=== PATIENT | male | born 1970 | race Caucasian/White ===

== ENCOUNTER → 2016-05-12 | Day surgery (SDC) | payer OTHER ==
[~2016-05-12] MED LIST: LACTATED RINGER'S 1000 ML INJ 1,000 ML ONE; LIDOCAINE 1%/EPINEPHrine 1:100,000 SOLN 50 ML VIAL ONE; MIDAZOLAM HCL 2 MG/2 ML VIAL ONE; ONDANSETRON HCL 4 MG/2 ML VIAL IV PUSH ONE; PROPOFOL 500 MG/50 ML BTL IV ONE; ceFAZolin 2 GM PREMIX 50 ML ONE
--- NOTE | 2016-05-12 13:40 | TN ---
cc: RAND MARINELLI M.D. DATE OF SURGERY: 05/12/2016 PREOPERATIVE DIAGNOSIS Lymphadenopathy. POSTOPERATIVE DIAGNOSIS Lymphadenopathy. PROCEDURE Excisional biopsy left inguinal lymph node. SURGEON Dr. Rand Marinelli FLOOR PRESS OPERATOR [place] [place] ANESTHESIA Local 1% lidocaine with epinephrine plus TIVA. INDICATIONS This is a pleasant 46-year-old gentleman who has noted increase palpable lumps in his neck and in his groins. CT scan shows diffuse bulky lymphadenopathy. He has no systemic symptoms of lymphomatous process. Plans are made for excisional biopsy. INTRAOPERATIVE FINDINGS Successful removal of enlarged abnormal-appearing left groin lymph node sent to pathology fresh at the request of Dr. Morley. ESTIMATED BLOOD LOSS Less than 5 cc. This procedure was assisted by my nurse practitioner. The skill set of a nurse practitioner was medically necessary to provide appropriate exposure of the area of concern to limit the incision size and improve the efficiency of the procedure. During the surgical procedure the surgical endoscopist was at the back table providing appropriate instrumentation while the nurse practitioner was directly assisting me through the entirety of the procedure. DESCRIPTION OF PROCEDURE IN DETAIL The patient was identified as Clay Trinidad, taken to the operating room and placed in supine position. Sequential compression devices were placed on bilateral lower extremities. Following IV sedation by Anesthesia, the left groin was prepped and draped in the usual sterile fashion with Betadine. A time-out procedure was performed. Following completion of the timeout procedure to everyone's satisfaction within the room, the proposed incision overlying the palpable groin lymph node was made with a marking pen. Local anesthetic was infiltrated and incision was carried out with scalpel. Hemostasis was controlled with cautery. Dissection continued posteriorly until the groin lymph node was encountered. It was from surrounding tissues using electrocautery and blunt dissection. 3-0 Vicryl [id number]-[id number]-[id number] suture was used on the main lymphovascular supply to the lymph node. The lymph node was removed in its entirety and passed off the field for pathologic evaluation. It was sent fresh was saline-soaked gauze for evaluation and pathology at the request of Dr. Morley. The wound was irrigated copiously with saline. Small bleeding points were controlled with electrocautery. Once the wound was ensured to be dry, local anesthetic was placed within the wound and the wound was closed in layers with 3-0 Vicryl and 4-0 Monocryl. Dry dressing was applied with Mastisol, half-inch brown Steri-Strips and Tegaderm with a Telfa pad. The patient tolerated the procedure without apparent complication. Sponge, needle and instrument counts were correct at the end of the case. MD JACLYN Morgan/TC /1:22 PM /1:33 PM
== END | disposition home or self-care (01) ==
LOC: ESDC 10:50
PROVIDERS: ATTEND Surgery Trauma Surgery
DX: R59.1 Generalized enlarged lymph nodes (principal); C82.90 Follicular lymphoma, unspecified, unspecified site
CPT/HCPCS: 00400; 38500; 88305; 88341; 88342; J0690; J2250; J2405; J3010; J7120

== ENCOUNTER → 2016-07-16 | Day surgery (SDC) | payer OTHER ==
[~2016-07-16] MED LIST changes: +ACETAMINOPHEN 1000 MG/100 ML VIAL IV ONE; +HEPARIN SODIUM - IV 10,000 UNITS/10 ML VIAL ONE; +LIDOCAINE 1%/EPINEPHrine 1:100,000 SOLN 20 ML VIAL ONE; -LIDOCAINE 1%/EPINEPHrine 1:100,000 SOLN 50 ML VIAL ONE; -MIDAZOLAM HCL 2 MG/2 ML VIAL ONE; -ONDANSETRON HCL 4 MG/2 ML VIAL IV PUSH ONE; +SODIUM CHLORIDE 0.9% INJ 10 ML ONE; -ceFAZolin 2 GM PREMIX 50 ML ONE; +ceFAZolin INJ 1,000 MG VIAL ONE
--- NOTE | 2016-07-16 16:35 | TN ---
cc: TAN MARINELLI M.D. DATE OF SURGERY 07/16/2016 PREOPERATIVE DIAGNOSIS Low grade follicular lymphoma. POSTOPERATIVE DIAGNOSIS Low grade follicular lymphoma. PROCEDURE Left subclavian Dcbsrn-D-Cprx placement with intraoperative fluoroscopy. SURGEON Dr. Tan Marinelli. TERRITORY ACCOUNT EXECUTIVE Dr. Vann first year director of family service center. ANESTHESIA General TIVA. INDICATIONS A very pleasant 46-year-old gentleman who was recently diagnosed with a low grade follicular lymphoma. Recommendations being made for chemotherapy by Dr. Church. Port placement has been requested. INTRAOPERATIVE FINDINGS Successful placement of left subclavian Wxzwhh-L-Wuoh with tip of the catheter in the proximal to mid superior vena cava. Port function was tested. There was easy blood return and forward concentrated heparinized saline flush flowed through the port. ESTIMATED BLOOD LOSS Less than 10 ml. DESCRIPTION OF PROCEDURE IN DETAIL The patient was identified as Clay Trinidad, taken to the operating room and placed in the supine position with a rolled sheet between the shoulder blades. Following placement of sequential compression devices on bilateral lower extremities, the upper chest and neck were prepped and draped in usual sterile fashion with Betadine. The patient was sedated by Anesthesia intravenously and a time-out procedure was performed. Following completion time-out procedure to everyone's satisfaction within the room, the patient was placed in Trendelenburg position and local anesthetic was placed in left subclavian area. Left subclavian vein was entered without difficulty using introducer needle and the guidewire was advanced through the introducer needle into appropriate position as seen on C-arm fluoroscopy. The Infusaport pocket was developed by using a scalpel in the skin and Metzenbaum scissors to create a pocket on the anterior pectoralis fascia. Fepvuv-Q-Uxfd which had been flushed with heparinized saline was placed into the Nalazc-Z-Zxny pocket with two 2-0 Prolene stay sutures. The catheter was cut to length of 20 cm and the dilator and dilating sheath were placed over the guidewire and the dilator and guidewire were removed. Catheter was fed through the dilating sheath which was then removed. Port function was tested. There was easy blood return for concentrated heparinized saline flush flowed through the port. C-arm fluoroscopy demonstrated the tip of the catheter in the proximal mid superior vena cava. There were no kinks in the catheter. The Kbivev-D-Wfiv pocket was closed in two layers with 3-0 Vicryl and 4-0 Monocryl. Dressing was applied with Mastisol and one-half inch brown Steri-Strips and a Tegaderm with Telfa. The patient tolerated the procedure without apparent complication. Sponge, needle and instrument counts were correct at the end of the case. Portable chest x-ray is pending. MD JACLYN Morgan/KK /3:59 PM /4:19 PM
== END | disposition home or self-care (01) ==
LOC: ESDC 12:49
PROVIDERS: ATTEND Surgery Trauma Surgery
DX: Z45.2 Encounter for adjustment and management of vascular access device (principal); C82.80 Other types of follicular lymphoma, unspecified site
CPT/HCPCS: 00532; 36561; 77001; C1788; J0131; J0690; J1644; J7120